=== PATIENT | female | born 1985 | race Caucasian/White ===

== ENCOUNTER 2017-06-06 07:31 | Inpatient (IN) | payer BC ==
[~2017-06-06] VITALS: Ht 157.5 cm; Wt 66.7 kg
--- OUTSIDE RECORDS SUMMARY | ~2017-06-06 | XMS ---
Demographics + + + | Address | [address] | | | [place] [address] | + + + | Preferred Language | Unknown | + + + | Marital Status | Unknown | + + + | Zoroastrianism Affiliation | Unknown | + + + | Race | Unknown | + + + | Ethnic Group | Unknown | + + + Author + + + | Author | [facility] | + + + | Organization | [facility] | + + + | Address | [address] | | | [place] [address] | + + + | Phone | | + + + Care Team Providers + + + + | Care Grease Maker Head Name | Role | Phone | + + + + Unavailable | Unavailable | + + + + PROBLEMS +---------+ + + +--------+ + + | Type | Condition | ICD9-CM | [id number] | Onset | Condition | SNOMED | | | | Code | Code | Dates | Status | Code | +---------+ + + +--------+ + + | Problem | Encounter | Z34.90 | | | Active | [id number] | | | for | | | | | | | | supervisio | | | | | | | | n of | | | | | | | | normal | | | | | | | | | | | | | | +---------+ + + +--------+ + + | Problem | Fungal | B35.1 | | | Active | [id number] | | | infection | | | | | | | | of toenail | | | | | | +---------+ + + +--------+ + + | Problem | | O26.819 | | | Active | | | | related | | | | | | | | fatigue | | | | | | +---------+ + + +--------+ + + | Problem | Abdominal | R10.33 | | | Active | [id number] | | | cramping, | | | | | | | | periumbili | | | | | | | | augustus | | | | | | +---------+ + + +--------+ + + | Problem | Possible | Z32.00 | | | Active | [id number] | | | | | | | | | +---------+ + + +--------+ + + ALLERGIES Unknown Allergies SOCIAL HISTORY No smoking Hx information available PLAN OF CARE VITAL SIGNS MEDICATIONS Unknown Medications RESULTS No Results PROCEDURES No Known procedures IMMUNIZATIONS No Known Immunizations"
--- OUTSIDE RECORDS SUMMARY | ~2017-06-06 | XMS ---
Demographics + + + | Address | [address] | | | [place] [address] | + + + | Preferred Language | Unknown | + + + | Marital Status | Unknown | + + + | Presybeterian Affiliation | Unknown | + + + | Race | Unknown | + + + | Ethnic Group | Unknown | + + + Author + + + | Author | [facility] | + + + | Organization | [facility] | + + + | Address | [address] | | | [place] [address] | + + + | Phone | | + + + Care Team Providers + + + + | Care Heat Seal Operator Name | Role | Phone | + + + + Unavailable | Unavailable | + + + + PROBLEMS +---------+ + + +--------+ + + | Type | Condition | ICD9-CM | [id number] | Onset | Condition | SNOMED | | | | Code | Code | Dates | Status | Code | +---------+ + + +--------+ + + | Problem | Encounter | Z34.90 | | | Active | [id number] | | | for | | | | | | | | supervisio | | | | | | | | n of | | | | | | | | normal | | | | | | | | | | | | | | +---------+ + + +--------+ + + | Problem | Fungal | B35.1 | | | Active | [id number] | | | infection | | | [...] | R10.33 | | | Active | [id number] | | | cramping, | | | | | | | | periumbili | | | | | | | | augustus | | | | | | +---------+ + + +--------+ + + | Problem | Possible | Z32.00 | | | Active | [id number] | | | | | | | | | +---------+ + + +--------+ + + ALLERGIES Unknown Allergies SOCIAL HISTORY No smoking Hx information available PLAN OF CARE VITAL SIGNS MEDICATIONS Unknown Medications RESULTS No Results PROCEDURES No Known procedures IMMUNIZATIONS No Known Immunizations"
== END 2017-06-06 12:10 | disposition short-term general hospital (02) | DRG 782 ==
LOC: FBCO 07:31 → FBC 08:45
PROVIDERS: ADMIT Obstetrics & Gynecology
DX: O44.12 Complete placenta previa with hemorrhage, second trimester (principal); Z3A.22 22 weeks gestation of pregnancy; O42.912 Preterm premature rupture of membranes, unspecified as to length of time between rupture and onset of labor, second trimester
CPT/HCPCS: 76815; 76817; 85025; 86850; 86900; 86901; 86920; 99213; J7120

== ENCOUNTER 2018-06-23 07:05 | Day surgery (SDC) | payer BC ==
[~2018-06-23] VITALS: Ht 157.5 cm; Wt 61.2 kg
[~2018-06-23 07:05] MED LIST: WOMEN'S DAILY1 EAC2 PO
--- NOTE | 2018-06-23 10:35 | NUR ---
06/23/18 1035 Ellen Hernandez 1018 PT ARRIVED IN PACU SLEEPY. 1025 OXGYEN REMOVED. SATS 98-100% ON RA. C/O ABD DISCOMFORT AT 11/15. DECLINED PAIN MED AT THIS TIME.
[2018-06-23] MEDS ORDERED: IBUPROFEN600 MG PO (10:47)
[2018-06-23] MEDS ORDERED: OXYCODON-ACETA1 EAC2 PO (10:48)
[2018-06-23] MEDS ORDERED: MAPAP325 MG PO (10:48)
--- NOTE | 2018-06-23 11:10 | NUR ---
CARLOS SAMPSON AND FITO SAGE GIVEN. SPOUSE @ BS. CALL LIGHT W/IN REACH.
--- NOTE | 2018-06-23 12:13 | NUR ---
PATIENT REPORTS NAUSEA. NEW ORDER RECEIVED. PT DENIES DESIRE FOR PRN FOR NAUSEA @ THIS TIME. COOL CLOTH GIVEN. PATIENT DENIES ADD'L NEEDS @ THIS TIME.
--- NOTE | 2018-06-23 12:22 | NUR ---
PT UP TO BR W/RN STANDBY. PT AMBULATES WELL. PT VOIDS 200 ML CLEAR YELLOW URINE AND IS AMBULATING IN THE HALLS. PT REPORTS HER NAUSEA IS BETTER WHEN SHE IS WALKING AROUND.
--- NOTE | 2018-06-23 12:33 | NUR ---
DC INSTRUCTIONS GIVEN IN PRESENCE OF SPOUSE AND BOTH VERBALIZE UNDERSTANDING. PT DRESSING SELF.
--- NOTE | 2018-06-23 20:24 | OR ---
[facility] [address], [place] [address] Signed DATE OF OPERATION: 06/23/2018 SURGEON: Laura Ring MD PREOPERATIVE DIAGNOSES: 1. Persistent abdominal wound drainage, upper and lower midline consistent with draining multiple stitch abscesses. 2. History of emergency abdominal hysterectomy, bilateral salpingo-oophorectomy for bleeding, placenta percreta in 2017, at [facility]. 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 PROCEDURES PERFORMED: 1. Exam under anesthesia. 2. Debridement of granulomatous tissue in the upper low midline incision at the umbilicus and a lower midline incision at suprapubic area. 3. Explantation of foreign bodies (sutures). 4. Debridement of skin and soft tissue as necessary. ANESTHESIA: General, LMA; Suresh Gwinn, ENGLISH AS A SECOND LANGUAGE TEACHER and local 20 mL of 0.25% Marcaine with epinephrine. INDICATIONS: This 33-year-old white woman is a patient of Dr. Eckert. She has no primary care provider, otherwise. She is referred for wound problems in the superior and inferior aspect of a midline incision extending from above the umbilicus to the symphysis pubis. She had a rather remarkable experience related to a placenta percreta hemorrhage in 2017 at [facility], ultimately requiring hysterectomy and ovariectomy for control of bleeding. Her survived and she did. Notably, she had a transfusion of over 105 units of blood. She did suffer a postoperative or perioperative pulmonary embolism, which required long-term anticoagulation. She is no longer anticoagulated. She has had episodic drainage from the superior and inferior aspect of the incision of turbid type material, it does not appear to be enteric fluid in any way. Examination and palpation shows a somewhat fibrotic incision at the umbilicus and in the suprapubic area. The remaining system appears to be well healed. Palpation reveals a high probability of suture knots that are accounting for this problem. The patient and her were assured that "absorbable sutures" were used. I think that is unlikely after all. She has had attempts at an [facility] for removal of these or drainage, Electronically Signed By: LAURA RING MD 06/23/182023 PATIENT NAME: CRISTIAN DOLAN OPERATIVE REPORT DATE OF : 81 REPORT #: [id number] PHYSICIAN: LAURA RING MD PCP: NO PRIMARY CARE PHYSICIAN REPORT IS CONFIDENTIAL AND NOT TO BE RELEASED WITHOUT AUTHORIZATION [facility] [address] [place] [address] Signed which have been unsuccessful and she has had various antibiotic courses given with no true beneficial effect. She was admitted at this time to undergo wound exploration, debridement, and extraction of probable suture granuloma type material including sutures. She understands as does her the risks of bleeding, infection, recurrent problem, cosmetic deformity, and other unforeseen complications. Understanding this and they wished to proceed. FINDINGS: Indeed Prolene sutures were noted in both areas of the incision. Lengthy knots were noted and excision of at least 3 Prolene sutures in the inferior aspect and just as many in the superior (umbilical area) aspect were noted. Debridement of chronic granulation tissue was undertaken as well. The fascia appeared to be intact. The wound was debrided including some skin to allow for a more cosmetically acceptable closure. Wound closure was with interrupted Vicryl to allow egress of fluid as necessary. DESCRIPTION OF PROCEDURE: The patient was brought to the operating room, given a general anesthetic by LMA technique. Preoperative antibiotic clindamycin had been given. Sequential compression device stockings used and heparin subcutaneously administered. The abdomen was prepared with chlorhexidine solution and draped sterilely. Initial incision was in the lower aspect of the midline incision. An incision was undertaken in the area of what appeared to be necessitating granulomas. Incision was undertaken, ultimately identifying very well the tails of Prolene sutures. These were dissected down to the fascia and excision of the granulation tissue undertaken more fully and ultimately explantation of approximately 3 interrupted type Prolene sutures. A small fascial defect noted at conclusion of this debridement, was closed with interrupted 0 Vicryl. Irrigation was undertaken and cautery used for hemostasis. Attention was turned to the periumbilical area. This was a bit more extensive, but incision in a similar way was undertaken. The previous incision and dissection carried through the fibrotic skin and dermis, again revealing Prolene sutures which had multiple knots and a considerable amount of redundancy. These were excised more fully including excision of chronic fibrotic granulation tissue. Skin, subcutaneous tissue, granulation tissue, and suture were removed. Photographs were taken throughout. The fascia in this area was completely intact. Some of the dermis was freed with electrocautery to allow more cosmetic closure ultimately. Irrigation was undertaken in both areas and there was no gross purulence in any of the areas. A 20 mL of 0.25% Marcaine with epinephrine was injected locally. The subcutaneous tissue and dermis were closed with interrupted 3-0 Vicryl to allow for expedited healing though not closed completely so as to allow for drainage as necessary. A transverse crease at the umbilicus was cosmetically inferior and therefore an elliptical excision was undertaken laterally to allow for more cosmetic Electronically Signed By: LAURA RING MD 06/23/182023 PATIENT NAME: CRISTIAN DOLAN OPERATIVE REPORT DATE OF : 81 REPORT #: [id number] PHYSICIAN: LAURA RING MD PCP: NO PRIMARY CARE PHYSICIAN REPORT IS CONFIDENTIAL AND NOT TO BE RELEASED WITHOUT AUTHORIZATION [address] [place] [address] acceptable incision. A Mepilex silver sponge dressing was applied as was an OpSite. The patient was ultimately extubated and transferred to recovery in good condition having suffered no complications. Sponge, needle, and instrument counts were reported as correct x3. MD DILIP Fontanez/PARAML /[id number] cc: Mitch Eckert MD Copies: MITCH ECKERT MD ~ Electronically Signed By: LAURA RING MD 06/23/182023 PATIENT NAME: CRISTIAN DOLAN OPERATIVE REPORT DATE OF : 81 REPORT #: [id number] PHYSICIAN: LAURA RING MD PCP: NO PRIMARY CARE PHYSICIAN REPORT IS CONFIDENTIAL AND NOT TO BE RELEASED WITHOUT AUTHORIZATION
== END 2018-06-23 12:40 | disposition home or self-care (01) ==
LOC: DS 07:05
PROVIDERS: Surgery
PROC: 0JC80ZZ Extirpation of Matter from Abdomen Subcutaneous Tissue and Fascia, Open Approach (ICD-10-PCS; principal; 2018-06-23 08:45)
DX: L92.3 Foreign body granuloma of the skin and subcutaneous tissue (principal); Z18.89 Other specified retained foreign body fragments; Z86.711 Personal history of pulmonary embolism; Z88.0 Allergy status to penicillin; Z79.890 Hormone replacement therapy; Z90.710 Acquired absence of both cervix and uterus; Z90.722 Acquired absence of ovaries, bilateral; Z90.79 Acquired absence of other genital organ(s)
CPT/HCPCS: 00400; J1644; J2250; J2405; J2704; J2765; J3010; J7120